=== PATIENT | female | born 1950 | race Caucasian/White ===

== ENCOUNTER → 2018-01-31 10:14 | Outpatient (CLI) | payer MEDICARE, OTHER, SELFPAY ==
--- NOTE | 2018-01-31 10:18 | BD_ITS ---
STUDY: DUAL ENERGY X-RAY ABSORPTIOMETRY / DXA REASON FOR EXAM: Female, 67 years old. The patient is postmenopausal. No loss of height. TECHNIQUE: Bone Mineral Density (BMD) measurements of lumbar spine and bilateral hips were obtained. COMPARISON: Comparison is made with prior study dated January 21, 2009. FINDINGS: Lumbar Spine (L1-L4): g/cm2 (1.253) / T-score (0.6) / Z-score (2.2) Findings are suggestive of normal bone density with a low fracture risk. Left Femur Total: g/cm2 (0.790) / T-score (-1.7) / Z-score (-0.5) Left Femoral Neck: g/cm2 (0.696) / T-score (-2.5) / Z-score (-1.0) Right Femur Total: g/cm2 (0.868) / T-score (-1.1) / Z-score (0.1) Right Femoral Neck: g/cm2 (0.749) / T-score (-2.1) / Z-score (-0.6) The T-Scores on the most recent prior examination were: Lumbar Spine (L1-L4): There has been worsening of bone density since the previous examination. Left Femur Total: which represents a worsening of 6.7%. Right Femur Total: which represents a worsening of 4.8%. BD/Dexa Bone Density Study IMPRESSION: The patient is considered osteopenic as outlined below according to World [employer] Organization (WHO) criteria with a moderate fracture risk. There has been worsening of bone density since the previous examination. Reference Information: The T-score is the number of standard deviations above or below the standard which is normal for young adults at their peak bone mineral density. The World Health Organization (WHO) interprets the T-scores as follows: Above -1 Normal bone density Between -1 and -2.5 Osteopenia Equal to / or below -2.5 Osteoporosis As a practical clinical guideline, osteopenia may be graded as follows: Mild -1 through -1.5 Moderate -1.6 through -2.0 Severe -2.1 through -2.4 The Z-score is the number of standard deviations above or below age-matched controls. A Z-score of less than -1.5 would be considered abnormal. References: 1. NIH Osteoporosis and Related Bone Diseases http://www.osteo.org 2. International Society for Clinical Densitometry http://www.iscd.org 3. National Osteoporosis Foundation http://www.nof.org Electronically Signed: Livan Lyle MD at 13:06 EDT Tel [phone], Service support ,
--- NOTE | 2018-01-31 10:18 | BI_ITS ---
MAMMOGRAPHY - BILATERAL SCREENING REASON FOR EXAM: Female, 67 years old. Routine annual screening examination. PERTINENT HISTORY: Mother with breast cancer. Remote right stereotactic breast biopsy. TECHNIQUE: Digital bilateral breast jazmín (3D mammographic acquisition) in the CC and MLO projections. 2-D mediolateral oblique (MLO) and craniocaudad (CC) views of both breasts were obtained. CAD: Full Field Digital Mammography with Computer Added Detection was performed. COMPARISON: Comparison is made with prior study dated November 18, 2016 and August 26, 2015. FINDINGS: Breast Composition: There are scattered areas of fibroglandular density. There are no dominant masses or suspicious calcifications. A tissue clip marker is once again seen in the mid slightly medial portion of the right breast. Stable appearance of the small benign-appearing bilateral axillary lymph nodes. No other significant abnormalities are identified. There has been no significant change since the prior study. BI/SCREENING MAMM (CAD), BILAT IMPRESSION: Stable bilateral screening mammogram. Yearly follow-up mammogram recommended. (A) ASSESSMENT CATEGORY: BIRADS Category 2: Benign. A letter regarding these results will be sent to the patient by the facility within 30 days. Approximately 10% of breast cancers are not detected by mammography. A normal mammogram should not delay biopsy of a clinically suspicious abnormality. [id number] Electronically Signed: Livan Lyle MD at 12:17 EDT Tel [phone], Service support ,
== END ==
PROVIDERS: Family Provider Family Medicine; PCP Family Medicine; Visit Provider Family Medicine
DX: Z12.31 Encounter for screening mammogram for malignant neoplasm of breast (principal); Z78.0 Asymptomatic menopausal state; M85.80 Other specified disorders of bone density and structure, unspecified site
CPT/HCPCS: 77063; 77067; 77080

== ENCOUNTER → 2019-02-02 11:03 | Outpatient (CLI) | payer MEDICARE, OTHER, SELFPAY ==
[2018-09-08 15:08] VITALS: BMI 26.0
--- NOTE | 2019-02-02 11:06 | BI_ITS ---
MAMMOGRAPHY - BILATERAL SCREENING REASON FOR EXAM: Female, 68 years old. Routine annual screening examination. PERTINENT HISTORY: Mother with breast cancer. Remote stereotactic biopsy. TECHNIQUE: Digital bilateral breast mike (3D mammographic acquisition) in the CC and MLO projections. 2-D mediolateral oblique (MLO) and craniocaudad (CC) views of both breasts were obtained. CAD: Full Field Digital Mammography with Computer Added Detection was performed. COMPARISON: Comparison is made with prior study dated January 31, 2018 and November 18, 2016 FINDINGS: Breast Composition: There are scattered areas of fibroglandular density. There is an 8.2 mm well-defined nodule in the upper slightly lateral aspect of the left breast. This was not seen on prior study. This may represent a small cyst. Correlation with ultrasound is recommended. A tissue clip marker is seen in the deep medial aspect of the right breast. No other significant abnormalities are identified. BI/SCREEN MAMM (CAD) W/MIKE BILAT IMPRESSION: New 8.2 mm well-defined nodule in the upper slightly outer aspect of the left breast as described. Correlation with ultrasound is recommended. ASSESSMENT CATEGORY: BIRADS Category 0: Incomplete. Need additional imaging evaluation. A letter regarding these results will be sent to the patient by the facility within 30 days. Approximately 10% of breast cancers are not detected by mammography. A normal mammogram should not delay biopsy of a clinically suspicious abnormality. [id number] Electronically Signed: Livan Lyle, at 12:26 EDT , Service support ,
== END ==
PROVIDERS: Family Provider Family Medicine; PCP Family Medicine; Referring Provider Family Medicine; Visit Provider Family Medicine
DX: Z12.31 Encounter for screening mammogram for malignant neoplasm of breast (principal)
CPT/HCPCS: 77063; 77067

== ENCOUNTER → 2019-02-06 14:17 | Outpatient (CLI) | payer MEDICARE, OTHER, SELFPAY ==
[2018-09-08 15:08] VITALS: BMI 26.0
--- NOTE | 2019-02-06 14:19 | US_ITS ---
STUDY: ULTRASOUND BREAST - LEFT REASON FOR EXAM: Female, 68 years old. Abnormal mammogram TECHNIQUE: Axial and longitudinal images of the LEFT breast were performed with a high resolution ultrasound transducer. COMPARISON: 02/02/2019 FINDINGS: LEFT Breast: Previously described nodule in the upper outer quadrant of left breast shown on ultrasound to be a simple 0.8 x 0.7 x 0.4 cm cyst. No suspicious shadowing solid lesion, architectural distortion, or shadowing calcifications. US/Breast Limited Unilateral IMPRESSION: Simple cyst in the upper outer quadrant of left breast. No specific follow-up needed, no suspicious sonographic findings. ASSESSMENT CATEGORY: BIRADS Category 2: Benign. A letter regarding these results will be sent to the patient by the facility within 30 days. Electronically Signed: Yoni Hernandez MD at 7:55 EDT , Service support ,
== END ==
PROVIDERS: Family Provider Family Medicine; PCP Family Medicine; Referring Provider Family Medicine; Visit Provider Family Medicine
DX: N63.20 Unspecified lump in the left breast, unspecified quadrant (principal); R92.8 Other abnormal and inconclusive findings on diagnostic imaging of breast
CPT/HCPCS: 76642

== ENCOUNTER → 2019-05-19 10:33 | Outpatient (CLI) | payer MEDICARE, OTHER, SELFPAY ==
[2018-09-08 15:08] VITALS: BMI 26.0
== END ==
LOC: LAB 10:34 → LABSPEC 10:35
PROVIDERS: Family Provider Family Medicine; PCP Family Medicine; Referring Provider Family Medicine; Visit Provider Family Medicine
DX: R31.9 Hematuria, unspecified (principal)
CPT/HCPCS: 87086; 87088; 87186

== ENCOUNTER → 2020-06-05 11:20 | Outpatient (CLI) | payer MEDICARE, OTHER, SELFPAY ==
[2018-09-08 15:08] VITALS: BMI 26.0
--- NOTE | 2020-06-05 11:23 | BI_ITS ---
MAMMOGRAPHY - BILATERAL SCREENING REASON FOR EXAM: Female, 70 years old. Routine annual screening examination. PERTINENT HISTORY: Mother with breast cancer. TECHNIQUE: Digital bilateral breast mike (3D mammographic acquisition) in the CC and MLO projections. 2-D mediolateral oblique (MLO) and craniocaudad (CC) views of both breasts were obtained. CAD: Full Field Digital Mammography with Computer Added Detection was performed. COMPARISON: Comparison is made with prior study dated 02/02/2019. FINDINGS: Breast Composition: There are scattered areas of fibroglandular density. There are no dominant masses or suspicious calcifications. A tissue clip marker is seen in the deep central medial portion of the right breast. The previously seen 8 mm well-defined nodule in the upper slightly lateral aspect of the left breast is not seen at this time. No other significant abnormalities are identified. BI/SCREEN MAMM (CAD) W/MIKE BILAT IMPRESSION: Stable bilateral screening mammogram. Yearly follow-up mammogram recommended. (A) ASSESSMENT CATEGORY: BIRADS Category 2: Benign. A letter regarding these results will be sent to the patient by the facility within 30 days. Approximately 10% of breast cancers are not detected by mammography. A normal mammogram should not delay biopsy of a clinically suspicious abnormality. [id number] Electronically Signed: Livan Lyle, at 12:28 EST , Service support ,
== END ==
PROVIDERS: PCP Family Medicine; Referring Provider Family Medicine; Visit Provider Family Medicine
DX: Z12.31 Encounter for screening mammogram for malignant neoplasm of breast (principal); Z80.3 Family history of malignant neoplasm of breast
CPT/HCPCS: 77063; 77067

== ENCOUNTER → 2020-12-11 14:58 | Outpatient (CLI) | payer MEDICARE, OTHER, SELFPAY ==
[2018-09-08 15:08] VITALS: BMI 26.0
== END ==
PROVIDERS: PCP Family Medicine; Visit Provider Family Medicine
DX: N39.0 Urinary tract infection, site not specified (principal)
CPT/HCPCS: 87086; 87088; 87186

== ENCOUNTER → 2021-06-23 10:24 | Outpatient (CLI) | payer MEDICARE, OTHER, SELFPAY ==
[2018-09-08 15:08] VITALS: BMI 26.0
--- NOTE | 2021-06-23 10:27 | BI_ITS ---
MAMMOGRAPHY - BILATERAL SCREENING REASON FOR EXAM: Female, 71 years old. Routine annual screening examination. PERTINENT HISTORY: Mother with breast cancer. Prior right stereotactic breast biopsy and left ultrasound-guided breast biopsy. TECHNIQUE: Digital bilateral breast jazmín (3D mammographic acquisition) in the CC and MLO projections. 2-D mediolateral oblique (MLO) and craniocaudad (CC) views of both breasts were obtained. CAD: Full Field Digital Mammography with Computer Added Detection was performed. COMPARISON: Comparison is made with prior examination in 06/05/2020 and 02/02/2019. FINDINGS: Breast Composition: There are scattered areas of fibroglandular density. There are no dominant masses or suspicious calcifications. A tissue clip marker is seen in the deep central slightly medial aspect of the right breast. No other significant abnormalities are identified. There has been no significant change since the prior study. BI/SCREENING MAMM (CAD), BILAT IMPRESSION: Stable bilateral screening mammogram. Yearly follow-up mammogram recommended. (A) ASSESSMENT CATEGORY: BIRADS Category 2: Benign. A letter regarding these results will be sent to the patient by the facility within 30 days. Approximately 10% of breast cancers are not detected by mammography. A normal mammogram should not delay biopsy of a clinically suspicious abnormality. [id number] Electronically Signed: Livan Lyle MD at 11:10 EST , Service support ,
== END ==
PROVIDERS: PCP Family Medicine; Referring Provider Family Medicine; Visit Provider Family Medicine
DX: Z12.31 Encounter for screening mammogram for malignant neoplasm of breast (principal); Z80.3 Family history of malignant neoplasm of breast
CPT/HCPCS: 77067

== ENCOUNTER → 2021-07-02 | Outpatient (CLI) | payer MEDICARE, OTHER, SELFPAY ==
[2021-07-02 16:09] LABS: Bacteria 0 SEEN /hpf (None Seen); Mucous, Urine 0 SEEN /hpf (<or=2+)
[2021-07-02 18:30] LABS: Color, Urine Yellow (Yellow); Glucose, Dipstick Normal (Normal); Ketone-Dipstick Negative (Negative); Leukocyte Esterase-Dipstick 500 /ul (Negative); Nitrite-Dipstick Negative (Negative); Occult Blood-Urine 250 /ul (Negative); Protein-Dipstick 100 mg/dl (Negative); Specific Gravity, Urine 1.015 (1.002-1.030); Urine Bilirubin Dipstick Negative (Negative); Urine Clarity Cloudy (Clear); Urine Urobilinogen Normal (Normal)
[2021-07-02 18:46] LABS: White Blood Cells 25-50 SEEN /hpf (0-5)
[2021-07-02 18:47] LABS: Red Blood Cells-Urine 50-100 SEEN /hpf (0-5); Squamous Epithelial Cells - UA 0-5 SEEN /hpf (5-10); Transitional Epithelial - Ur 0-5 SEEN /hpf (0-5)
== END | disposition home or self-care (01) ==
LOC: LABSPEC 16:07
PROVIDERS: PCP Family Medicine; Referring Provider Family Medicine; Visit Provider Family Medicine
DX: N39.0 Urinary tract infection, site not specified (principal)
CPT/HCPCS: 81001; 87077; 87086; 87088; 87186

== ENCOUNTER → 2022-07-15 | Outpatient (CLI) | payer MEDICARE, OTHER, SELFPAY ==
--- NOTE | 2022-07-15 13:08 | BI_ITS ---
MAMMOGRAPHY - BILATERAL SCREENING REASON FOR EXAM: Female, 72 years old. Routine annual screening examination. PERTINENT HISTORY: Mother with breast cancer. Prior right stereotactic breast biopsy and left ultrasound-guided breast biopsy. TECHNIQUE: Digital bilateral breast mike (3D mammographic acquisition) in the CC and MLO projections. 2-D mediolateral oblique (MLO) and craniocaudad (CC) views of both breasts were obtained. CAD: Full Field Digital Mammography with Computer Added Detection was performed. COMPARISON: 02/03/2021, 06/05/2020. FINDINGS: Breast Composition: There are scattered areas of fibroglandular density. There are no dominant masses or suspicious calcifications. Stable biopsy marker in the right breast. No other significant abnormalities are identified. There has been no significant change since the prior study. BI/SCRN MAMM (CAD)W/MIKE BILAT IMPRESSION: Stable bilateral screening mammogram. Yearly follow-up mammogram recommended. (A) ASSESSMENT CATEGORY: BIRADS Category 2: Benign. A letter regarding these results will be sent to the patient by the facility within 30 days. Approximately 10% of breast cancers are not detected by mammography. A normal mammogram should not delay biopsy of a clinically suspicious abnormality. Electronically Signed: Tobi Reyes, at 9:37 EST ,
== END | disposition home or self-care (01) ==
PROVIDERS: PCP Family Medicine; Referring Provider Family Medicine; Visit Provider Family Medicine
DX: Z12.31 Encounter for screening mammogram for malignant neoplasm of breast (principal); Z80.3 Family history of malignant neoplasm of breast
CPT/HCPCS: 77063; 77067

== ENCOUNTER → 2022-09-15 | Outpatient (CLI) | payer MEDICARE, OTHER, SELFPAY | END | disposition home or self-care (01) | LOC: LABSPEC 15:43 | PROVIDERS: PCP Family Medicine; Visit Provider Family Medicine | DX: R35.0 Frequency of micturition (principal) | CPT/HCPCS: 87086; 87088 ==

== ENCOUNTER → 2022-12-14 | Outpatient (CLI) | payer MEDICARE, OTHER, SELFPAY ==
--- NOTE | 2022-12-14 12:45 | RAD_ITS ---
STUDY: X-RAY - LUMBOSACRAL SPINE REASON FOR EXAM: Female, 72 years old. Lumbar pain/sprain. TECHNIQUE: 6 view(s) of the lumbosacral spine, including lateral flexion and extension views, were obtained. COMPARISON: None FINDINGS: Osteopenia. Normal lumbar lordosis. There is no substantial scoliosis. There is normal alignment of the vertebrae. Limited flexion and extension with no abnormal motion. Diffuse lower thoracic and lumbosacral facet sclerosis. Mild intervertebral disc space narrowing diffusely without significant osteophyte formation. Normal bilateral sacral ala, sacroiliac joints, and visualized sacrum. Normal visualized soft tissue structures. RAD/L/S Spine w Bend Min 6 Vw IMPRESSION: Osteopenia with mild lower thoracic and lumbosacral spondylosis. Limited flexion and extension with no abnormal motion. Electronically Signed: Seferino Carter MD at 14:45 EDT ,
--- NOTE | 2022-12-14 12:45 | RAD_ITS ---
STUDY: X-RAY - THORACIC SPINE REASON FOR EXAM: Female, 72 years old. Cervical strain/pain. TECHNIQUE: 2 view(s) of the thoracic spine were obtained on 3 images. COMPARISON: None. FINDINGS: Osteopenia. Slight increased kyphosis. No substantial scoliosis. Mild intervertebral disc space narrowing diffusely with small osteophytes. No acute abnormality. Normal soft tissues. RAD/Thoracic Spine 2 Views IMPRESSION: Osteopenia with diffuse mild thoracic spondylosis. No acute abnormality or erosive changes. Electronically Signed: Seferino Carter MD at 14:46 EDT ,
== END | disposition home or self-care (01) ==
LOC: RAD 12:39
PROVIDERS: PCP Family Medicine; Referring Provider Family Medicine; Visit Provider Family Medicine
DX: S39.012A Strain of muscle, fascia and tendon of lower back, initial encounter (principal)
CPT/HCPCS: 72070; 72114

== ENCOUNTER 2022-12-28 13:55 | Outpatient (RCR) | payer MEDICARE, OTHER, SELFPAY ==
--- NOTE | 2022-12-28 15:01 | HP.PTEVAL ---
Patient's Visit Information ZEINAB HARDY is a 72 year old F referred to Physical Therapy by Dr. Becky Delcid MD with a diagnosis of LUMBAR STRAIN. Date of Evaluation: 12/28/22 Physical Therapist: Timi Trinh PT, Cert MDT, OCS - Visit Plan Frequency: 1 VISIT Plan: PATIENT WAS PROVIDED WITH HEP. PT EVAL ONLY - Subjective This 72 y/o female presents to physical therapy with lumbar pain. Patient has lumbar pain for ~ 2years ago. Patient symptoms got better and intermittent . Then about ~ 3weeks episode of pain. Patient did have symptoms in leg left. Symptoms became worse after seen DR Kern Tried muscle relaxer . Symptoms became better . Predisposing factors work around house lifting ,bending ,sitting ,standing. Alleviating walking factors. Patient had x-rays -. Coughing/sneeze- .Denies paresthesia/tingling-. Bowel/bladder -. Patient sleeping better but when have pain affects sleeping. Patient pain affects QOL and function. Patient get massage therapy. Patient goals to have less pain. VOCATION: retired. SOCIAL: - Objective POSTURE: mild forward posture. GAIT: reciprocal pattern. PALPATION: unremarkable. NEURO: intact. MMT: quads/hams/hip and ankle 4/5. LUMBAR ROM: flexion WFL ,extension min loss ,side glides min loss - Special Tests L/S Slump test left side: Negative L/S Slump test right side: Negative L/S Left Straight Leg Raise: Negative L/S Right Straight Leg Raise: Negative Lumbar Standing: Flexion - Mechanical Response: No effect Lumbar Standing: Flexion - Symptoms During Testing: No effect Lumbar Standing: Flexion - Symptoms After Testing: No effect Lumbar Standing: Extension - Mechanical Response: No effect Lumbar Standing: Extension - Symptoms During Testing: No effect Lumbar Standing: Extension - Symptoms After Testing: No effect Lumbar Standing: Right Side Glides - Mechanical Response: No effect Lumbar Standing: Right Side [place] - Symptoms During Testing: No effect Lumbar Standing: Right Side [place] - Symptoms After Testing: No effect Lumbar Standing: Left Side [place] - Mechanical Response: No effect Lumbar Standing: Left Side [place] - Symptoms During Testing: No effect Lumbar Standing: Left Side [place] - Symptoms After Testing: No effect - Goals Goal 1:: Patient was provided with HEP to manage LBP Goal Time Frame: 1VISIT - Rehabilitation Potential Physical Therapy Diagnosis: This patient has had lumbar pain but currently patient pain is better want to develop HEP . Rehabilitation Potential: Good - Anticipated Interventions Patient/Client Instruction: Educate patient on: Condition, Plan of Care For the Purpose of:: Other Other: HEP Thank you for the opportunity to evaluate your patient. For Medicare and Medicare HMO plans, please review the plan of care and approve it. It will need to be FAXED BACK to us at [phone] for Medicare purposes. For Medicare only, by signing this I certify the plan of care. Please let me know if there are questions or concerns regarding this plan of care. Physician Signature: Date:
== END 2022-12-28 19:00 | disposition home or self-care (01) ==
LOC: PT 13:55
PROVIDERS: PCP Family Medicine; Referring Provider Family Medicine; Visit Provider Family Medicine
DX: S39.012D Strain of muscle, fascia and tendon of lower back, subsequent encounter (principal)
CPT/HCPCS: 97110; 97162

== ENCOUNTER → 2023-08-15 | Outpatient (CLI) | payer MEDICARE, OTHER, SELFPAY ==
--- NOTE | 2023-08-15 12:53 | BI_ITS ---
MAMMOGRAPHY - BILATERAL SCREENING REASON FOR EXAM: Female, 73 years old. Routine annual screening examination. PERTINENT HISTORY: Mother with breast cancer. Prior right stereotactic breast biopsy. TECHNIQUE: Digital bilateral breast mike (3D mammographic acquisition) in the CC and MLO projections. 2-D mediolateral oblique (MLO) and craniocaudad (CC) views of both breasts were obtained. CAD: Full Field Digital Mammography with Computer Added Detection was performed. COMPARISON: Comparison is made with prior study dated July 15, 2022 and June 23, 2021. FINDINGS: Breast Composition: There are scattered areas of fibroglandular density. There are no dominant masses or suspicious calcifications. A tissue clip marker is seen in the deep central slightly medial aspect of the right breast. No other significant abnormalities are identified. There has been no significant change since the prior study. BI/SCRN MAMM (CAD)W/MIKE BILAT IMPRESSION: Stable bilateral screening mammogram. Yearly follow-up mammogram recommended. (A) ASSESSMENT CATEGORY: BIRADS Category 2: Benign. A letter regarding these results will be sent to the patient by the facility within 30 days. Approximately 10% of breast cancers are not detected by mammography. A normal mammogram should not delay biopsy of a clinically suspicious abnormality. [id number] Electronically Signed: Livan Lyle MD at 13:56 EST ,
== END | disposition home or self-care (01) ==
LOC: OPBI 12:53
PROVIDERS: PCP Family Medicine; Referring Provider Family Medicine; Visit Provider Family Medicine
DX: Z12.31 Encounter for screening mammogram for malignant neoplasm of breast (principal); Z80.3 Family history of malignant neoplasm of breast
CPT/HCPCS: 77063; 77067

== ENCOUNTER 2023-08-26 06:39 | Emergency (ER) | payer MEDICARE, OTHER, SELFPAY ==
[2023-08-26] VITALS (7 sets, daily range): BP systolic 109–187; BP diastolic 62–73; PULSE 59–83; RESP 16–18; TEMP 36.3; O2SAT 95–99; BMI 28.0
--- NOTE | 2023-08-26 07:28 | EX.ED.DYSGE1 ---
HPI History of Present Illness Chief Complaint: Other, Pain/Inj Informant: patient and spouse/S.O. Narrative Narrative: Patient states he slept on the couch last night when she woke up this morning around an hour or so ago, she felt like her heart was racing, which is what she told initially. However she had no symptoms in her chest. She felt like my head was racing and had some discomfort in her jaw. She is not sure when it went away but she remembers getting up and it was continuous and very uncomfortable and saying that we were going to go right to the emergency room. She states it is gone now, except she has some residual tingling in her jaw more to the left side. She has no numbness, weakness anywhere else. She then states that her left arm has been hurting since she had a vaccination and it in her doctor's office 1.5 months ago, it hurts more to move in certain ways, and that arm is feeling no different this morning. She had no lightheadedness or symptoms of near syncope. She had no chest discomfort or ernesto dyspnea. She has no history of cardiac problems including dysrhythmias, pulmonary emboli, no pain or swelling in either leg recently. [facility] Medical History (Updated 08/26/23 @ 11:[address] Adolfo Del Rio MD) Depression Environmental allergies Fibromyalgia Insomnia Lipoma Lipoma Psoriasis Home Medications cetirizine 10 mg tablet 10 mg PO DAILY 01/26/14 [History Last Taken Unknown] mirtazapine 30 mg tablet 30 mg PO QHS 01/26/14 [History Last Taken Unknown] bupropion HCl 150 mg 24 hr tablet, extended release 300 mg PO DAILY 09/08/18 [History Last Taken Unknown] estradiol 0.01% (0.1 mg/gram) vaginal cream (Estrace) 1 g vaginal QWEEK 09/08/18 [History Last Taken Unknown] tacrolimus 0.1 % topical ointment (Protopic) 1 applic topical BID 09/08/18 [History Last Taken Unknown] vitamin A and D 1 applic topical QHS 09/08/18 [History Last Taken Unknown] zolpidem 5 mg tablet 10 mg PO QHS PRN PRN Sleep 09/08/18 [History Last Taken Unknown] bupropion HCl 150 mg tablet,12 hr sustained-release 150 mg PO DAILY 08/26/23 [History Last Taken Unknown] Allergy/AdvReac Type Severity Reaction Status Date / Time No Known Allergies Allergy Verified 08/26/23 06:44 Family History (Updated 09/08/18 @ 15:08 by [place]) Father Colon cancer CAD (coronary artery disease) Mother Breast cancer Surgical History H/O breast biopsy H/O: hysterectomy [place] teeth removed Social History Smoking Status: Never smoker alcohol intake: current alcohol intake frequency: holidays/special occasions only ROS ROS ED Constitutional Constitutional ED: Denies chills or fever(s) Eyes Eyes: Denies change in vision or diplopia ENT ENT ED: Denies rhinorrhea or sore throat Cardiovascular Cardiovascular: Reports as per HPI, palpitations and radiating jaw, neck or arm pain; Denies chest pain Respiratory/Chest Respiratory/Chest: Denies cough or dyspnea Gastrointestinal Gastrointestinal: Denies abdominal pain, diarrhea, nausea or vomiting Genitourinary Genitourinary ED: Denies dysuria or hematuria Musculoskeletal Musculoskeletal: Reports as per HPI and extremity pain; Denies back pain or neck pain Integumentary Reports other Details: Wound lower abdominal wall 3-4 days ago after lying with a heating pad on that area. It is still sore but getting better. ; Denies abscess or rash Neurologic Neurologic: Reports paresthesias; Denies headache(s) or weakness Psychiatric Psychiatric: Denies anxiety or suicidal thoughts EXAM Physical Exam Const Vital Signs: 08/26/23 06:40 08/26/23 06:40 08/26/23 06:46 Temperature 97.4 F L Temperature Source Temporal Pulse Rate 80 Respiratory Rate 16 Respiratory Effort Normal Non-Labored Respiratory Pattern Normal Blood Pressure 187/73 H 143/73 H Blood Pressure Mean 111 96 Pulse Ox 98 Oxygen Delivery Method Room Air 08/26/23 07:30 08/26/23 07:40 08/26/23 08:00 Temperature Temperature Source Pulse Rate 59 L 83 Respiratory Rate 18 16 Respiratory Effort Respiratory Pattern Blood Pressure 109/72 140/64 H Blood Pressure Mean 84 89 Pulse Ox 99 97 Oxygen Delivery Method Room Air Room Air Room Air 08/26/23 09:00 08/26/23 10:00 Temperature Temperature Source Pulse Rate 69 65 Respiratory Rate 18 16 Respiratory Effort Respiratory Pattern Blood Pressure 125/63 H 124/63 H Blood Pressure Mean 83 83 Pulse Ox 95 95 Oxygen Delivery Method Room Air Room Air Positive well nourished and well developed General Appearance ED: well developed and NAD HEENT Reports moist mucous membranes normocephalic and atraumatic Eyes PERRL and EOMs intact bilaterally Neck full ROM and supple Resp normal respiratory effort and clear to auscultation bilaterally Cardio regular rate, regular rhythm and no murmurs GI non-tender and non-distended Auscultation: normoactive bowel sounds Palpation: soft Back/Spine no CVA tenderness General Back: other FROM Extremity normal to inspection General Extremety ED: Negative for edema, pulses abnormal or tenderness General Extremity: Negative for edema or pulses abnormal Neuro oriented x3, CN's II-XII intact bilaterally and no sensory deficits noted Sensorium / Orientation: awake and alert Motor Exam: strength 5/5 throughout Skin no rashes or lesions noted Skin Narrative: On the lower abdominal wall, in the area where a low transverse would be, there is what appears to be a superficial laceration that is only open at the lateral aspects bilaterally but not in the center. There is no signs of infection or discharge. MDM MDM MDM Narrative Medical decision making narrative: On ROS patient had an area on her lower abdominal wall that she wanted me to look at. It looks like a superficial laceration but given the history, I think it probably was due to having a heating pad against that area and the laceration was probably caused by the elastic band in her underwear, it is my guess. It does not look infected, I recommend that she continue placing bacitracin on this with a bandage and keeping an eye on it but it should heal by secondary intent without difficulty. Primary closure is not indicated given the age of it. With regards to the feeling like her heart was racing but no chest symptoms, her EKG is normal now. She has some residual jaw discomfort and she felt like maybe she was having a stroke but I do not think any of this is consistent with an acute stroke. I think it is probably radiating discomfort from palpitations that she experienced prior to arrival. Therefore I am performing a workup looking at electrolytes cardiac enzymes, and keeping her on the monitor and plan will be to reevaluate her to see if this resolves with time unless she has recurrence. Her vital signs are normal, she initially arrived hypertensive but now she is 143/73. On reevaluation after the first set of enzymes returned in the single digits negative, the patient did have complete resolution of her jaw discomfort/tingling and did not have any recurrence of her other symptoms or those. Blood pressure 124/63. Second set of enzymes also for for a delta of 0. Therefore at this time patient is stable for discharge home with a low heart score and we are having respiratory fix a 48-hour Holter monitor to her, advised to follow-up. History & Record Review Additional record(s) reviewed:: Prior outpatient record (Normal treadmill cardiac stress test 2017) Lab Data Attestation: I reviewed the patient's lab results. Labs: Laboratory Results - last 24 hr 08/26/23 08/26/23 06:47 09:55 WBC 6.9 RBC 4.81 Hgb 14.3 Hct 43.8 MCV 91.1 MCH 29.7 MCHC 32.6 RDW Std Deviation 41.3 RDW Coeff of Jaqueline 12.5 Plt Count 220 MPV 11.6 Immature Gran % (Auto) 0.100 Neut % (Auto) 61.7 Lymph % (Auto) 24.9 [place] % (Auto) 9.5 Eos % (Auto) 3.1 Baso % (Auto) 0.7 Absolute Neuts (auto) 4.2 Absolute Lymphs (auto) 1.71 Nucleated RBC % 0 Sodium 141 Potassium 4.1 Chloride 110 H Carbon Dioxide 26.0 Anion Gap 5 BUN 20 H Creatinine 0.84 Estim Creat Clear Calc 62.80 Est GFR (MDRD) Af Amer 87 Est GFR (MDRD) Non-Af 72 BUN/Creatinine Ratio 24.0 H Glucose 105 Calcium 8.9 Troponin I High Sens 4 4 Radiography Diagnostic Testing: Clinical Impression(s) from Imaging Studies Chest X-Ray 08/26/23 07:33 IMPRESSION: Mild left basilar opacity, likely atelectasis. Electronically Signed: Korin Charles MD at 8:05 EST , Rhythm Strip Rhythm Strip: Sinus Rhythm Rate: 70 Ectopy: None EKG Initial EKG: Attestation: I personally reviewed and interpreted this EKG as follows: Interpretation: Sinus Rhythm and No Acute Injury Pattern Comments: Normal EKG Discharge Plan Triage Chief Complaint: Other, Pain/Inj ED Provider: Adolfo Del Rio Dx/Rx/DC Orders Clinical Impression: Rapid palpitations, Laceration of abdominal wall Instructions: ED Laceration Superficial No Stitch, ED Palpitations Prescriptions: No Action estradiol [Estrace] 0.01 % (0.1 mg/gram) cream 1 g VAGINAL QWEEK tacrolimus [Protopic] 0.1 % ointment 1 applic TOPICAL BID vitamin A and D ointment 1 applic TOPICAL QHS cetirizine 10 MG tablet 10 mg PO DAILY mirtazapine 30 MG tablet 30 mg PO QHS bupropion HCl 150 mg tablet extended release 24 hr 300 mg PO DAILY zolpidem 5 mg tablet 10 mg PO QHS PRN PRN (Reason: Sleep) bupropion HCl 150 mg tablet sustained-release 12 hr 150 mg PO DAILY Patient Comments: take 1 tablet by mouth once daily Primary Care Provider: Becky Delcid Referrals: Becky Delcid MD [Primary Care Provider] - [facility] appointment Leana Mcmanus MD [Med Staff - Active Staff] - (call for appt following holter) Disposition Disposition: Home, Self Care
--- NOTE | 2023-08-26 07:33 | RAD_ITS ---
HISTORY: chest pain. TECHNIQUE: XR Chest 1 View. COMPARISON: None. FINDINGS: CARDIOMEDIASTINAL BORDERS: Cardiac silhouette within normal limits in size. Mediastinal contour unremarkable. LUNGS: Mild linear left basilar opacity. Mild elevation of the right hemidiaphragm. PLEURA: No pleural effusion or pneumothorax seen. OSSEOUS STRUCTURES: Unremarkable. RAD/Chest 1 View (Portable) IMPRESSION: Mild left basilar opacity, likely atelectasis. Electronically Signed: Korin Charles MD at 8:05 EST ,
[2023-08-26 07:35] LABS: Absolute Lymphocyte Count 1.71 X10^3/uL (0.83-4.51); Absolute Neutrophil Count 4.2 X10^3/uL (2.0-7.7); Basophil# 0.05 X10^3/uL; Basophil% 0.7 % (0-1); Eosinophil# 0.21 X10^3/uL; Eosinophils% 3.1 % (0-5); Hematocrit 43.8 % (37-47); Hemoglobin 14.3 g/dL (12.0-15.0); Lymphocyte # 1.71 X10^3/ul (0.83-4.51); Lymphocyte % 24.9 % (19-41); Mean Corp Hgb Conc 32.6 g/dL (32-36); Mean Corpuscular Hgb 29.7 pg (27.0-32.0); Mean Corpuscular Volume 91.1 fL (81-99); Mean Platelet Vol. 11.6 fl (6.2-12.0); Monocyte# 0.65 X10^3/uL; Monocyte% 9.5 % (0-10); NRBC Flagged by Analyzer 0 % (0-5); Neutrophil # 4.23 X10^3/uL (2.7-7.7); Neutrophil % 61.7 % (47-70); Platelet Count 220 K/mm3 (150-450); RBC Distribution Width CV 12.5 % (11.6-14.6); RBC Distribution Width SD 41.3 fl (35.1-43.9); Red Blood Count 4.81 M/mm3 (4.2-5.4); White Blood Count 6.9 K/mm3 (4.4-11.0)
[2023-08-26 08:05] LABS: Anion Gap 5 (5-15); BUN 20 mg/dL (7-18); Calcium,Total 8.9 mg/dL (8.5-10.1); Chloride 110 mmol/L (98-107); Creatinine, Serum 0.84 mg/dL (0.55-1.02); EST Glomerular Filtration Rate 72 mL/min (>60); Est Glom Filt Rate - Afr Amer 87 mL/min (>60); Glucose 105 mg/dL (74-106); Potassium 4.1 mmol/L (3.5-5.1); Sodium Level 141 mmol/L (136-145); Troponin-I HS (w/2H Reflex) 4 pg/mL (3.0-54.0)
[2023-08-26 09:30] LABS: Reflex Troponin-HS? (from REC) Y
[2023-08-26 10:26] LABS: Troponin-I HS 4 pg/mL (3.0-54.0)
== END 2023-08-26 11:49 | disposition home or self-care (01) ==
PROVIDERS: Emergency Provider Emergency Medicine; PCP Family Medicine; Visit Provider Emergency Medicine
DX: R00.2 Palpitations (principal); R68.84 Jaw pain; S31.119A Laceration without foreign body of abdominal wall, unspecified quadrant without penetration into peritoneal cavity, initial encounter; X58.XXXA Exposure to other specified factors, initial encounter; Z79.899 Other long term (current) drug therapy
CPT/HCPCS: 71045; 80048; 84484; 85025; 93005; 93225; 93226; 99284; A4216

== ENCOUNTER → 2023-08-26 | Outpatient (CLI) | payer MEDICARE, OTHER, SELFPAY | END | disposition home or self-care (01) | LOC: CVS 11:20 | PROVIDERS: PCP Family Medicine; Visit Provider Emergency Medicine | DX: R00.2 Palpitations (principal) | CPT/HCPCS: 93225; 93226 ==

== ENCOUNTER → 2024-08-23 | Outpatient (CLI) | payer MEDICARE, OTHER, SELFPAY ==
--- NOTE | 2024-08-23 10:51 | BI_ITS ---
PROCEDURE: SCRN MAMM (CAD)W/MIKE BILAT REASON FOR EXAM: F, Age 74 y/o, presents for annual screening mammogram. Family history of breast cancer in her mother at 60 and in a 1st cousin at age 62. TECHNIQUE: Bilateral screening digital breast tomosynthesis with 2D and 3D images. Computer aided detection. COMPARISON: Prior exam(s) 08/15/2023, 07/15/2022. FINDINGS: There are scattered areas of fibroglandular density. No suspicious masses, areas of developing architectural distortion, or suspicious calcifications. BI/SCRN MAMM (CAD)W/MIKE BILAT IMPRESSION: There is no mammographic evidence of malignancy in either breast. BI-RADS 1: NEGATIVE. RECOMMEND ANNUAL MAMMOGRAPHIC SCREENING. Follow-up code: Routine Follow-up The patient will be notified of the results by letter. Reading Location: [id number]
== END | disposition home or self-care (01) ==
LOC: OPBI 10:49
PROVIDERS: PCP Family Medicine; Referring Provider Family Medicine; Visit Provider Family Medicine
DX: Z12.31 Encounter for screening mammogram for malignant neoplasm of breast (principal); Z80.3 Family history of malignant neoplasm of breast
CPT/HCPCS: 77063; 77067

== ENCOUNTER → 2024-10-25 | Outpatient (CLI) | payer MEDICARE, OTHER, SELFPAY ==
--- NOTE | 2024-10-25 10:51 | BD_ITS ---
PROCEDURE: DEXA BONE DENSITY STUDY 10/25/2024 REASON FOR EXAM: Screening F, age 74 y/o . TECHNIQUE: DXA scan of the lumbar spine and left hip, using Hologic. REFERENCE LINKS: ISCD Adult Positions COMPARISON: January 31, 2018 FINDINGS: BMD and T-SCORES Lumbar spine: 0.964 g/cm2, T-Score -0.8 L1 through L4 Change from prior: -13.3% Left femoral neck: 0.538 g/cm2, T-Score -2.8 Femoral neck comparison data not recommended for monitoring change. Left total hip: 0.699 g/cm2, T-Score -2.0 Change from prior: -4.2% Right femoral neck: 0.589 g/cm2, T-Score -2.3 Femoral neck comparison data not recommended for monitoring change. Right total hip: 0.766 g/cm2, T-Score -1.4 Change from prior: -4.9% Fracture Risk Calculation: FRAX (10-year Fracture Risk) Score: Major osteoporotic fracture: 14%; hip fracture: 3.3% BD/Dexa Bone Density Study IMPRESSION: OSTEOPOROSIS. Recommend follow-up as clinically warranted. Reading Location: [id number]
== END | disposition home or self-care (01) ==
LOC: OPBD 10:50
PROVIDERS: PCP Family Medicine; Referring Provider Family Medicine; Visit Provider Family Medicine
DX: N95.9 Unspecified menopausal and perimenopausal disorder (principal); M81.0 Age-related osteoporosis without current pathological fracture
CPT/HCPCS: 77080

== ENCOUNTER → 2025-04-17 | Outpatient (CLI) | payer MEDICARE, OTHER, SELFPAY ==
[2025-04-17 12:56] LABS: Hematocrit 42.7 % (37-47); Hemoglobin 14.4 g/dL (12.0-15.0); Immature Granulocytes Count 0.010 X10^3/uL (0.0-0.0); Mean Corp Hgb Conc 33.7 g/dL (32-36); Mean Corpuscular Volume 89.9 fL (81-99); Mean Platelet Vol. 11.8 fl (6.2-12.0); NRBC Flagged by Analyzer 0 % (0-5); Platelet Count 218 K/mm3 (150-450); RBC Distribution Width CV 12.7 % (11.6-14.6); RBC Distribution Width SD 41.8 fl (35.1-43.9); Red Blood Count 4.75 M/mm3 (4.2-5.4); White Blood Count 6.9 K/mm3 (4.4-11.0)
[2025-04-17 13:28] LABS: AST(SGOT) 22 U/L (<=31); Alanine Aminotransfer ALT/SGPT 23 U/L (<=34); Albumin, Serum 4.3 g/dL (3.4-4.8); Alkaline Phosphatase 98 U/L (35-104); Anion Gap 10 (5-15); BUN 18 mg/dL (4-19); BUN/Creat Ratio 23.7 RATIO (10-20); Calcium,Total 9.6 mg/dL (7.6-11.0); Carbon Dioxide 24.3 mmol/L (21.0-32.0); Chloride 108 mmol/L (98-108); Globulin 2.3 g/dL (2.2-4.2); Glucose 105 mg/dL (70-99); Potassium 4.9 mmol/L (3.3-5.1); Vitamin B12 363 pg/mL (180-914); Vitamin D,25 Hydroxy 26.0 ng/mL (30-100)
== END | disposition home or self-care (01) ==
LOC: MFPLAB 10:37
PROVIDERS: PCP Family Medicine; Visit Provider Family Medicine
DX: R73.09 Other abnormal glucose (principal); R53.83 Other fatigue
CPT/HCPCS: 36415; 80053; 82306; 82607; 83036; 84439; 84443; 85025

== ENCOUNTER → 2025-07-02 | Outpatient (CLI) | payer MEDICARE, OTHER, SELFPAY ==
[2025-07-05 05:07] LABS: QNTFERON TB Mitogen Value > 10.00 IU/mL (.); QNTFERON TB Nil Value 0.03 IU/mL (.); QNTFERON TB1+ Ag Value 0.03 IU/mL (.); QNTFERON TB2+ Ag Value 0.03 IU/mL (.); QNTIFERON TB Positive Criteria Negative (Negative)
== END | disposition home or self-care (01) ==
LOC: MTLAB 11:10
PROVIDERS: PCP Family Medicine; Referring Provider Dermatology; Visit Provider Dermatology
DX: L40.0 Psoriasis vulgaris (principal)
CPT/HCPCS: 36415; 86480